=== PATIENT | female | born 2000 | race African-American/Black ===

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

== ENCOUNTER 2024-07-28 10:07 | Emergency (ER) | payer OTHER ==
[~2024-07-28] VITALS: Ht 162.6 cm; Wt 48.6 kg
--- NOTE | 2024-07-28 10:45 | ED.PDOC ---
SOB-HPI HPI Comments 23 y.o female presents to the ED via EMS for a chief complaint of SOB associated with a fever that started one week ago. Patient was seen at the [facility] 2 days ago and was prescribed Amoxicillin for an ear infection. Patient states today symptoms worsened with new onset mid sternum chest pain upon deep inspiration. EMS reports SPO2 read 98% on room air on scene, was given one albuterol/Atrovent treatment en route. Patient denies any other symptoms or pain at this time. Patient reports a medical history of anxiety. No substance, alcohol or tobacco use. Chief Complaint: Shortness of Breath Time Seen by MD: 10:28 Primary Care Provider: MICHAELK Reviewed notes: Nurses Notes, Silviculturist Notes, Medications, Allergies Information Source: Patient, Emergency Med Personnel Mode of Arrival: EMS Severity: Moderate Timing: Weeks (1) Duration: Since onset Context: At Rest PE Risk Factors: None History of: Recent Antibiotic Prehospital treatment: Breathing Tx Modifying Factors: Nothing Associated Signs and Symptoms: Fever, Chest Pain Past Medical History PAST MEDICAL HISTORY: Anxiety Surgical History: Denies all surgeries SPRINKLER INSTALLER History: No Pertinent SPRINKLER INSTALLER History Family History Family History: Family hx of DM, Family hx of heart yolande Social History Smoker: Non-Smoker Alcohol: Denies ETOH Use Drugs: Denies Drug Use Lives In: Home Constitutional: reports: fever, malaise; denies: chills, diaphoresis, fatigue, sweats, weakness, others EENTM: reports: voice changes; denies: blurred vision, double vision, ear bleeding, ear discharge, ear drainage, ear pain, ear ringing, eye pain, eye redness, hearing loss, mouth pain, mouth swelling, nasal discharge, nose bleeding, nose congestion, nose pain, photophobia, tearing, throat pain, throat swelling, others Respiratory: reports: SOB at rest, shortness of breath, SOB with excertion; denies: cough, hemoptysis, orthopnea, stridor, wheezing, others Cardiovascular: reports: chest pain; denies: dizzy spells, diaphoresis, Dyspnea on exertion, edema, irregular heart beat, left arm pain, lightheadedness, palpitations, PND, syncope, others Gastrointestinal: denies: abdomen distended, abdominal pain, blood streaked bowels, constipated, diarrhea, dysphagia, difficulty swallowing, hematemesis, m mayur, nausea, poor appetite, poor fluid intake, rectal bleeding, rectal pain, vomiting, others Genitourinary: denies: abnormal vagina bleeding, burning, dyspareunia, dysuria, flank pain, frequency, hematuria, incontinence, pain, , vagina discharge, urgency, others Neurological: denies: dizziness, fainting, headache, left sided numbness, left sided weakness, numbness, paresthesia, pre-existing deficit, right sided numbness, right sided weakness, seizure, speech problems, tingling, tremors, weakness, others Musculoskeletal: denies: back pain, gout, joint pain, joint swelling, muscle pain, muscle stiffness, neck pain, others Integumetry: denies: bruises, change in color, change in hair/nails, dryness, laceration, lesions, lumps, rash, wounds, others Allergic/Immunocompromised: denies: Difficulty Healing, Frequent Infections, Hives, Itching, others Hematologic/Lymphatic: denies: anemia, blood clots, easy bleeding, easy bruising, swollen glands, others Endocrine: denies: excessive hunger, excessive sweating, excessive thirst, excessive urination, flushing, intolerance to cold, intolerance to heat, unexpla ined weight gain, unexplained weight loss, others Psychiatric: denies: anxiety, bipolar disorder, depression, hopeless, panic disorder, schizophrenia, sleepless, suicidal, others All Other Systems: Reviewed and Negative Physical Exam General Appearance: Moderate Distress HEENT: Normal ENT Inspection, Pharynx Normal, TMs Normal Neck: Full Range of Motion, Non-Tender, Normal, Normal Inspection Respiratory: Chest Non-Tender, Decreased Breath Sounds, No Accessory Muscle Use, Respiratory Distress, Wheezing Cardiovascular: No Edema, No JVD, No Murmur, No Gallop, Tachycardia Breast Exam: Deferred Gastrointestinal: No Organomegaly, Non Tender, No Pulsatile Mass, Normal Bowel Sounds, Soft Genitalia: Deferred Pelvic: Deferred Rectal: Deferred Extremities: No calf tenderness, Normal capillary refill, Normal inspection, Normal range of motion, Non-tender, No pedal edema Musculoskeletal : Apperance: Normal Neurologic: Alert, buildings and grounds supervisor II-XII nml as Tested, Motor Weakness, Normal Affect, Normal Mood, No Sensory Deficits Cerebellar Function: Normal Reflexes: Normal Skin: Dry, Normal Color, Warm Lymphatic: No Adenopathy Was a procedure done? Was a procedure done?: No Differential Dx Differential Diagnosis: Asthma, Bronchitis, Pneumonia, Pulmonary Embolism, Respiratory Distress, Sinusitis, URI X-Ray, Labs, Meds, VS Vital Signs Date Time Temp Pulse Resp B/P (MAP) Pulse Ox O2 Delivery O2 Flow Rate FiO2 07/28/24 12:28 128 19 118/86 (97) 100 07/28/24 11:59 24 95 Room Air* 0 21 07/28/24 10:46 98.0 135 18 122/87 (99) 98 Lab Test 07/28/24 12:22 07/28/24 10:57 Range/Units Influenza Type A Antigen Pending Influenza Type B Antigen Pending SARS-CoV-2 Antigen (Rapid) Pending White Blood Count 6.6 4.4-10.8 10^3/uL Red Blood Count 4.63 4.0-5.20 10^6/uL Hemoglobin 12.9 12.2-16.2 g/dL Hematocrit 38.9 36.0-46.0 % Mean Corpuscular Volume 84.0 80.0-100.0 fL Mean Corpuscular Hemoglobin 27.9 L 28.0-32.0 pg Mean Corpuscular Hemoglobin Concent 33.2 32.0-36.0 g/dL Red Cell Distribution Width 14.8 H 11.8-14.3 % Platelet Count 353 140-450 10^3/uL Mean Platelet Volume 7.3 6.9-10.8 fL Neutrophils (%) (Auto) 68.5 37.0-80.0 % Lymphocytes (%) (Auto) 23.9 10.0-50.0 % Monocytes (%) (Auto) 6.2 0.0-12.0 % Eosinophils (%) (Auto) 0.9 0.0-7.0 % Basophils (%) (Auto) 0.5 0.0-2.0 % Neutrophils # (Auto) 4.5 1.6-8.6 10 ^3/uL Lymphocytes # (Auto) 1.6 0.4-5.4 10 ^3/uL Monocytes # (Auto) 0.4 0-1.3 10 ^3/uL Eosinophils # (Auto) 0.1 0-0.8 10 ^3/uL Basophils # (Auto) 0 0-0.2 10 ^3/uL Nucleated Red Blood Cells 0.2 % Sodium Level 139 136-145 mmol/L Potassium Level 3.1 L 3.5-5.1 mmol/L Chloride Level 104 98-107 mmol/L Carbon Dioxide Level 23 20-31 mmol/L Anion Gap 12 5-15 Blood Urea Nitrogen 6 L 9-23 mg/dL Creatinine 0.73 0.550-1.02 mg/dL Glomerular Filtration Rate Calc 119 >90 mL/min BUN/Creatinine Ratio 8.2 L 10.0-20.0 Serum Glucose 119 H 74-106 mg/dL Calcium Level 10.4 8.7-10.4 mg/dL Current Medications Medications (Trade) Dose Ordered Sig/Paco Route Start Time Stop Time Status Last Admin Methylprednisolone Sodium Succinate (Solu Medrol) 125 mg ONCE ONCE IV 07/28/24 10:45 07/28/24 10:48 DC 07/28/24 11:34 Ipratropium [place] (Atrovent Medneb) 1 mg ONCE ONCE HHN 07/28/24 10:45 07/28/24 10:48 DC 07/28/24 11:59 Albuterol (Ventolin Medneb) 10 mg ONCE ONCE HHN 07/28/24 10:45 07/28/24 10:48 DC 07/28/24 11:59 Potassium Chloride (Klor-Con Tablet) 40 meq ONCE ONCE PO 07/28/24 12:30 07/28/24 12:31 DC 07/28/24 12:35 CHEST RADIOGRAPH IMPRESSION: No evidence of acute disease. The patient's CBC is within normal limits The chemistry panel shows hypokalemia at 3.1 The patient was given potassium 40 mEq p.o. here in the emergency department's The patient was given a continuous breathing treatment of albuterol and Atrovent The patient was also given Solu-Medrol 125 mg IV push Despite the medications, the patient was still having some shortness a breath as well as some wheezing. The COVID test as well as influenza a and influenza B are pending. We contacted [facility] secondary to the persistence of the shortness a breath. The patient was stable for transfer at this time and an authorization number for transfer is [id number] We spoke with the patient's family and they are in agreement with the management The patient's parents are also at bedside Images Reviewed?: Images reviewed and evaluated by me Time of 1ST Reevaluation: 10:40 Reevaluation 1ST: Unchanged Patient Education/Counseling: Diagnosis, Treatment, Prognosis Family Education/Counseling: No Family Present Departure 1 Departure Time of Disposition: 12:46 Impression: Primary Impression: Status asthmaticus Qualified Codes: J45.42 - Moderate persistent asthma with status asthmaticus Disposition: 51 HOSPICE/MEDICAL FACILITY Condition: Fair Critical Care Note Critical Care Time?: No Stability Stability form required: Yes Stable for transfer: Intended for transfer (Health plan request transfer), To designated facility I personally scribed for DON MONTENEGRO MD ([email or web address]) on 07/28/24 at 10:45. Electronically submitted by Jocelyn Christiansen ([facility]). I personally scribed for DON MONTENEGRO MD ([email or web address]) on 07/28/24 at 12:11. Electronically submitted by Jocelyn Christiansen ([facility]). DON MONTENEGRO MD Jul 28, 2024 10:45
[2024-07-28 11:30] LABS: Basophils # (auto) 0 10 ^3/uL (0-0.2); Basophils % (auto) 0.5 % (0.0-2.0); Eosinophils # (auto) 0.1 10 ^3/uL (0-0.8); Eosinophils % (auto) 0.9 % (0.0-7.0); Hematocrit 38.9 % (36.0-46.0); Hemoglobin 12.9 g/dL (12.2-16.2); Lymphocytes # (auto) 1.6 10 ^3/uL (0.4-5.4); Lymphocytes % (auto) 23.9 % (10.0-50.0); Mean Corpuscular Hemoglobin 27.9 pg (28.0-32.0); Mean Corpuscular Hgb Conc. 33.2 g/dL (32.0-36.0); Monocytes # (auto) 0.4 10 ^3/uL (0-1.3); Monocytes % (auto) 6.2 % (0.0-12.0); Neutrophils # (auto) 4.5 10 ^3/uL (1.6-8.6); Neutrophils % (auto) 68.5 % (37.0-80.0); Nucleated Red Blood Cells % 0.2 %; Platelet Count (auto) 353 10^3/uL (140-450); Red Blood Cells 4.63 10^6/uL (4.0-5.20); Red Cell Distribution Width 14.8 % (11.8-14.3); White Blood Cell 6.6 10^3/uL (4.4-10.8)
[2024-07-28] MEDS: methylPREDNISolone SOD SUCC 125 MG/2 ML VL IV ONE (11:34)
[2024-07-28 11:42] LABS: Anion Gap 12 (5-15); Carbon Dioxide 23 mmol/L (20-31); Chloride 104 mmol/L (98-107); Potassium 3.1 mmol/L (3.5-5.1); Sodium 139 mmol/L (136-145)
[2024-07-28 11:43] LABS: Calcium 10.4 mg/dL (8.7-10.4)
--- NOTE | 2024-07-28 11:47 | DVH ---
CHEST RADIOGRAPH Indication:sob Technique: Frontal and lateral view of the chest was obtained Comparison: None FINDINGS: Lines and Tubes: None Lungs: Clear Pleura: No effusion. No pneumothorax. Cardiomediastinal contours: Unremarkable Bones: Unremarkable IMPRESSION: No evidence of acute disease.
[2024-07-28 11:48] LABS: BUN/Creatinine Ratio 8.2 (10.0-20.0); Blood Urea Nitrogen 6 mg/dL (9-23); Glucose 119 mg/dL (74-106)
[2024-07-28] MEDS: IPRATROPIUM BROM 0.5 MG/2.5ML INH SOL HHN ONE (11:59)
[2024-07-28] MEDS: ALBUTEROL SULF 2.5 MG/0.5ML(0.5%) NEB SOLN HHN ONE (11:59)
[2024-07-28] MEDS: POTASSIUM CHL 20 Meq TABLET PO ONE (12:35)
[2024-07-28 13:47] VITALS: BP 115/65; PULSE 105; RESP 16; TEMP 97.9; O2SAT 98
[2024-07-28 13:50] LABS: Rapid Influenza A Negative (Negative); Rapid Influenza B Negative (Negative)
[2024-07-28 13:52] LABS: COVID19 ANTIGEN SOFIA FIA NEGATIVE (NEGATIVE)
== END 2024-07-28 14:01 | disposition short-term general hospital (02) ==
LOC: ER 10:07 → EDBD 10:07 → ER 14:01
DX: J45.902 Unspecified asthma with status asthmaticus (principal); F41.9 Anxiety disorder, unspecified; Z20.822 Contact with and (suspected) exposure to COVID-19
CPT/HCPCS: 36415; 71046; 80048; 85025; 87426; 87804; 94640; 96374; 99285; J2919